=== PATIENT | female | born 1990 | race Caucasian/White ===

== ENCOUNTER 2023-12-16 19:29 | Outpatient (REF) | payer OTHER, SELFPAY | END 2023-12-16 19:30 | disposition home or self-care (01) | LOC: LBN 19:29 | PROVIDERS: Visit Provider Nurse Practitioner Family | DX: R30.0 Dysuria (principal); N89.8 Other specified noninflammatory disorders of vagina | CPT/HCPCS: 87480; 87510; 87660 ==